=== PATIENT | male | born 1960 | race Caucasian/White ===

== ENCOUNTER 2021-02-20 07:10 | Emergency (ER) | payer BC ==
[2021-02-20] MEDS ORDERED: Sodium Chloride 0.9% 10 ML Syringe FLUSH PRN (07:20)
[2021-02-20] MEDS ORDERED: Ondansetron 4 MG/2 ML SDV IVPUSH ONE ×2 (07:21→13:33)
[2021-02-20] MEDS: Sodium Chloride 0.9% 1,000 ML IV ONE ×2 (07:25→10:51)
[2021-02-20] MEDS ORDERED: Prochlorperazine 10 MG/2 ML SDV IV ONE (07:59)
[2021-02-20 08:00] LABS: CHLORIDE,CL 101 mmol/L (98-107); SODIUM,NA 140 mmol/L (136-145)
[2021-02-20 08:01] LABS: ANION GAP 17.3 mmol/L (5-15)
--- NOTE | 2021-02-20 08:19 | EDM.PDOC ---
ED HPI GENERAL MEDICAL PROBLEM - General Chief Complaint: Gastrointestinal Problem Stated Complaint: NAUSEA DIAPHORETIC Time Seen by Provider: 02/20/21 07:19 Source of Information: Reports: Patient, EMS - History of Present Illness INITIAL COMMENTS - FREE TEXT/NARRATIVE: Jim is a 62 y/o male who is brought to the ER by EMS after he awoke this AM and went into the bathroom and was reported to have been very dizzy. He was bumping into things all over in the bathroom because he was do dizzy. He became very nauseated and was dry heaving when all of this started. He reports that yesterday he felt like his ears might have had fluid in them, but he certainly did not feel this way. He denies any chest pain. He is just very dizzy and is most comfortable on his stomach. - Related Data Allergies Allergy/AdvReac Type Severity Reaction Status Date / Time No Known Allergies Allergy Verified 02/20/21 07:55 Review of Systems - Review of Systems Review Of Systems: See Below Constitutional: Reports: Diaphoresis (mild) Ears: Reports: Dizziness. Denies: Tinnitus Nose: Reports: No Symptoms Mouth/Throat: Reports: No Symptoms Respiratory: Reports: No Symptoms Cardiovascular: Reports: No Symptoms GI/Abdominal: Reports: Nausea Genitourinary: Reports: No Symptoms Musculoskeletal: Reports: No Symptoms Skin: Reports: No Symptoms Neurological: Reports: Difficulty Walking Psychiatric: Reports: No Symptoms ED EXAM, GENERAL - Physical Exam Exam: See Below General Appearance: Alert, WD/WN (adult male), Moderate Distress (obviously not feeling well, and needing to lay on his stomach) Ears: Normal External Exam, Normal Canal, Hearing Grossly Normal, Normal TMs Nose: Normal Inspection, Normal Mucosa Throat/Mouth: Normal Inspection, Normal Lips, Normal Voice Head: Atraumatic, Normocephalic Neck: Normal Inspection, Supple Respiratory/Chest: No Respiratory Distress, Lungs Clear, Chest Non-Tender Cardiovascular: Normal Peripheral Pulses, Regular Rate, Rhythm, No Murmur GI/Abdominal: Normal Bowel Sounds, Soft (Male) Exam: Deferred Rectal (Males) Exam: Deferred Back Exam: Normal Inspection Extremities: Normal Inspection, Normal Range of Motion, Normal Capillary Refill Neurological: Alert, Oriented, CN II-XII Intact, Normal Cognition Skin Exam: Warm, Intact, Normal Color, Diaphoretic Lymphatic: No Adenopathy Course - Vital Signs Text/Narrative:: 0720 The patient was seen by the [employer] MANAGER. Labs and EKG ordered. Patient declined the EKG because he did not want to lie on his back. IV fluids started and Zofran 4mg IVP given. NIH Stroke Score=0.Patient refused to have EKG done due to position change. 0750 Nausea persists, Compazine 10mg IVP given. 0800 Labs reviewed, CBC neg, CMP fkpkpee=791, K=3.3, AST=13, ALT=30; Trop I=5. Still nauseated with any movement. PT consulted for Jakob Maneuver. Suspect Vertigo, but cannot completely exclude a posterior stroke. No neuro sx, but no imaging available here. Will monitor and reassess. 0820 PT to bedside. Scopalamine patch applied, PT will return to see patient in a few minutes. 0915 CT Head WO ordered now. 0945 PT done seeing patient and after several maneuvers, BPPV is negative after PT eval. Still very nauseated. Will order Reglan 10mg IVP and Benadryl 50mg IVP now and a second liter of IV fluid. CT results pending. [address] WO=no acute findings, results discussed with the patient and his family. He was able to get up to the bathroom and reports feeling slightly better now. [employer] MANAGER discussed with the patient that we cannot exclude a posterior stroke with the imaging services here at [place] and he would need to be sent to [place] for further evaluation. He refuses at this time, despite explanation of risks by [employer] MANAGER. He would like to stay here in the ER for awhile and see how he feels in the next 1-2 hours. Will re-assess. 1125 Dr Dooley arrives to the ER and case reviewed with her since she is the patient's PCP. Still lying on the cart and dizzy with movement. Will allow pt to rest and PCP will stop back to see pt. Will advise further eval with higher level imaging in [place] today or home with antiemetics and if sx persist, then definitely he would need to go to [place]. 1330 Patient resting yet, more nauseated again. Zofran 4mg IVP ordered. PCP here to see patient and after speaking with patient he agrees to transfer for further evaluation. 1345 [address]ju[address] jose [facility]orga contacted and case reviewed with Dr Adkins who accepts the patient to the ER. [facility] to transport the patient. He left the ER in stable condition. Last Recorded V/S: Last Vital Signs Temp 36.3 C 02/20/21 11:59 Pulse 66 02/20/21 07:12 Resp 16 02/20/21 07:12 BP 155/79 H 02/20/21 07:12 Pulse Ox 97 02/20/21 07:12 - Orders/Labs/Meds Orders: Active Orders 24 hr Category Date Time Status PT Evaluation and Treatment [CONS] Routine Cons 02/20/21 08:25 Active Sodium Chloride 0.9% [Saline Flush] Med 02/20/21 07:20 Active 10 ml FLUSH ASDIRECTED PRN Saline Lock Insert [OM.PC] Stat Oth 02/20/21 07:20 Ordered Medication Orders Sodium Chloride (Sodium Chloride 0.9% 10 Ml Syringe) 10 ml FLUSH ASDIRECTED PRN PRN Reason: Keep Vein Open Labs: Laboratory Tests 02/20/21 02/20/21 Range/Units 07:23 07:23 WBC 9.3 (4.0-10.0) x10^3/uL RBC 4.72 (4.5-6.0) x10^6/uL Hgb 15.5 (14.0-18.0) g/dL Hct 43.5 (40.0-52.0) % MCV 92.2 (78.0-93.0) fL MCH 32.8 H (26.0-32.0) pg MCHC 35.6 (32.0-36.0) g/dL RDW Coeff of Radha 12.5 (10.0-15.0) % Plt Count 136 (130-400) x10^3/uL Neut % (Auto) 63.9 (50.0-80.0) % Lymph % (Auto) 28.7 (25.0-50.0) % Keith % (Auto) 6.0 (2.0-11.0) % Eos % (Auto) 1.1 (0.0-4.0) % Baso % (Auto) 0.3 (0.2-1.2) % Sodium 140 (136-145) mmol/L Potassium 3.3 L (3.5-5.1) mmol/L Chloride 101 (98-107) mmol/L Carbon Dioxide 25 (21-32) mmol/L Anion Gap 17.3 H (5-15) mmol/L BUN 18 (7-18) mg/dL Creatinine 1.1 (0.70-1.30) mg/dL Est Cr Clr Drug Dosing TNP Estimated GFR (MDRD) > 60 Glucose 288 H (70-99) mg/dL Calcium 8.0 L (8.5-10.1) mg/dL Corrected Calcium 8.56 (8.5-10.1) mg/dL Total Bilirubin 0.6 (0.2-1.0) mg/dL AST 13 L (15-37) U/L ALT 30 (16-63) U/L Alkaline Phosphatase 42 L (46-116) U/L Troponin I High Sens 5 (<=76) ng/L Total Protein 6.1 L (6.4-8.2) g/dL Albumin 3.3 L (3.4-5.0) g/dL Globulin 2.8 Albumin/Globulin Ratio 1.18 Meds: Medications Generic Name Dose Route Start Last Admin Trade Name Freq PRN Reason Stop Dose Admin Sodium Chloride 10 ml 02/20/21 07:20 Sodium Chloride 0.9% 10 Ml Syringe FLUSH ASDIRECTED PRN Keep Vein Open Discontinued Medications Generic Name Dose Route Start Last Admin Trade Name Freq PRN Reason Stop Dose Admin Diphenhydramine HCl 50 mg 02/20/21 09:55 02/20/21 10:45 Diphenhydramine 50 Mg/Ml Sdv IVPUSH 02/20/21 09:56 50 mg ONETIME ONE Administration Sodium Chloride 1,000 mls @ 999 mls/hr 02/20/21 07:21 02/20/21 10:51 Normal Saline IV 02/20/21 08:21 999 mls/hr ONETIME ONE Administration Metoclopramide HCl 10 mg 02/20/21 09:55 02/20/21 10:45 Metoclopramide 10 Mg/2 Ml Sdv IVPUSH 02/20/21 09:56 10 mg ONETIME ONE Administration Ondansetron HCl 4 mg 02/20/21 07:21 02/20/21 07:25 Ondansetron 4 Mg/2 Ml Sdv IVPUSH 02/20/21 07:22 4 mg ONETIME ONE Administration Ondansetron HCl 4 mg 02/20/21 13:33 02/20/21 13:48 Ondansetron 4 Mg/2 Ml Sdv IVPUSH 02/20/21 13:34 4 mg ONETIME ONE Administration Prochlorperazine Edisylate 10 mg 02/20/21 07:59 02/20/21 08:01 Prochlorperazine 10 Mg/2 Ml Sdv IV 02/20/21 08:00 10 mg ONETIME ONE Administration Scopolamine 1.5 mg 02/20/21 08:25 02/20/21 08:46 Scopolamine 1.5 Mg Transdermal Patch TRDERM 02/20/21 08:26 1.5 mg Q72H STA Administration - Radiology Interpretation Free Text/Narrative:: No acute intracranial findings (See final report) CT Results Date: 02/20/21 CT Results Time: 10:04 Departure - Departure Time of Disposition: 13:50 Disposition: DC/Tfer to [facility] 02 Condition: Good Clinical Impression: Hx of myasthenia gravis, Hx of diabetes mellitus, Dizziness of unknown cause, Vertigo - Discharge Information *PRESCRIPTION DRUG MONITORING PROGRAM REVIEWED*: Not Applicable *COPY OF PRESCRIPTION DRUG MONITORING REPORT IN PATIENT ALFIE: Not Applicable Instructions: Dizziness Referrals: Rani Dooley MD [Primary Care Provider] - Forms: ED Department Discharge, Interfacility Transfer [facility] Sepsis Event Note (ED) - Focused Exam Vital Signs: Vital Signs Temp Pulse Resp BP Pulse Ox 02/20/21 11:59 36.3 C 02/20/21 07:12 36.7 C 66 16 155/79 H 97 - My Orders Last 24 Hours: My Active Orders 02/20/21 07:20 Sodium Chloride 0.9% [Saline Flush] 10 ml FLUSH ASDIRECTED PRN Saline Lock Insert [OM.PC] Stat 02/20/21 08:25 PT Evaluation and Treatment [CONS] Routine - Assessment/Plan Last 24 Hours: My Active Orders 02/20/21 07:20 Sodium Chloride 0.9% [Saline Flush] 10 ml FLUSH ASDIRECTED PRN Saline Lock Insert [OM.PC] Stat 02/20/21 08:25 PT Evaluation and Treatment [CONS] Routine Assessment:: 1)Vertigo 2)Dizziness 3)Hx Myastenia Gravidas 4)Hx T2DM Plan: -Transfer [facility] ER to Dr Adkins via [facility]
[2021-02-20] MEDS ORDERED: Scopolamine 1.5 MG Transdermal Patch TRDERM STA (08:25)
[2021-02-20] MEDS ORDERED: Metoclopramide 10 MG/2 ML SDV IVPUSH ONE (09:55)
[2021-02-20] MEDS ORDERED: diphenhydrAMINE 50 MG/ML SDV IVPUSH ONE (09:55)
--- NOTE | 2021-02-20 10:08 | CT ---
[id number] CT/CT Head WO IV EXAM: CT Head WO IV CLINICAL DATA: DIZZINESS. COMPARISON STUDY: None FINDINGS: No intracranial hemorrhage, extra-axial fluid collection, mass, or acute ischemia. Generalized parenchymal atrophy with scattered areas of nonspecific white matter disease, commonly seen as sequela of chronic microvascular ischemia. Soft tissues are unremarkable. Paranasal sinuses and mastoid air cells are clear. IMPRESSION: No acute intracranial findings. Haja Palafox DO 02/20/21 1007 Thank you for allowing us to participate in the care of your patient.
== END 2021-02-20 14:42 | disposition short-term general hospital (02) ==
LOC: EDBD 07:10 → VM.ED 07:10
DX: R42 Dizziness and giddiness (principal); E11.9 Type 2 diabetes mellitus without complications; G70.00 Myasthenia gravis without (acute) exacerbation; R11.0 Nausea; R26.2 Difficulty in walking, not elsewhere classified
CPT/HCPCS: 36415; 70450; 80053; 84484; 85025; 96374; 96375; 96376; 99284; 99285-25; A9270-GY; J0780; J1200; J2405; J2765; J7030